=== PATIENT | male | born 1985 | race Hispanic/Latino ===

== ENCOUNTER 2016-12-21 18:54 | Emergency (ER) | payer BC ==
[~2016-12-21] VITALS: Ht 180.3 cm; Wt 100.4 kg
[2016-12-21 21:08] VITALS: BP 131/73
== END 2016-12-21 21:08 | disposition home or self-care (01) | DRG 605 ==
LOC: ED 18:54
PROC: 0HQGXZZ Repair Left Hand Skin, External Approach (ICD-10-PCS; principal; 2016-12-21)
DX: S61.412A Laceration without foreign body of left hand, initial encounter (principal); W26.0XXA Contact with knife, initial encounter; Y93.G9 Activity, other involving cooking and grilling; Y92.000 Kitchen of unspecified non-institutional (private) residence as the place of occurrence of the external cause

== ENCOUNTER 2020-01-28 19:41 | Emergency (ER) | payer SELFPAY ==
[~2020-01-28] VITALS: Ht 180.3 cm; Wt 100.0 kg
[2020-01-28] MEDS ORDERED: KEFLEX500 MG PO (21:34)
[2020-01-28 21:41] VITALS: BP 138/70
== END 2020-01-28 21:50 | disposition home or self-care (01) | DRG 605 ==
LOC: ED 19:41
PROC: 0HQCXZZ Repair Left Upper Arm Skin, External Approach (ICD-10-PCS; principal; 2020-01-28)
DX: S41.112A Laceration without foreign body of left upper arm, initial encounter (principal); S20.312A Abrasion of left front wall of thorax, initial encounter; W20.8XXA Other cause of strike by thrown, projected or falling object, initial encounter; Y93.89 Activity, other specified; Y92.009 Unspecified place in unspecified non-institutional (private) residence as the place of occurrence of the external cause

== ENCOUNTER 2020-06-17 17:41 | Emergency (ER) | payer OTHER ==
[~2020-06-17] VITALS: Ht 180.3 cm; Wt 107.0 kg
[~2020-06-17 17:41] MED LIST: KEFLEX500 MG PO
[2020-06-17 19:42] LABS: HEMATOCRIT 42.5 % (39.0-50.0); HEMOGLOBIN 14.3 g/dl (14.0-18.0); IMMATURE GRANULOCYTES 0.5 % (0.0-5.0); MEAN CELL VOLUME 90.6 fL CALC (80.0-100.0); MEAN CORPUSCULAR HGB 30.5 pG CALC (26.0-32.0); MEAN CORPUSCULAR HGB CONC 33.6 g/dL CAL (32.0-36.0); NEUT# 12.11 thou/uL (1.82-7.42); RED BLOOD COUNT 4.69 mill/uL (4.70-6.10); RED CELL DISTRI WIDTH 13.3 % (11.5-15.5)
[2020-06-17 19:55] LABS: ANION GAP 14 (6-22 (CALC)); BUN 11 mg/dL (9-20); BUN/CREATININE RATIO 14 (12-20 (CALC)); CARBON DIOXIDE 26 mmol/l (22-30); CHLORIDE 99 mmol/l (95-108); CREATININE 0.8 mg/dL (0.7-1.3); GFR > 60 ML/MIN (>=60 (CALC)); GFR FOR AFR.AMER. > 60 ML/MIN (>=60 (CALC)); POTASSIUM 4.3 mmol/l (3.5-5.1); SODIUM 135 mmol/l (137-146)
[2020-06-17] MEDS ORDERED: PERCOCET 5/325M1 TAB PO (20:57)
[2020-06-17] MEDS ORDERED: BACTRIM DS1 TAB PO (20:57)
[2020-06-17] MEDS ORDERED: KEFLEX500 M1 PO (20:57)
[2020-06-17 22:22] VITALS: BP 132/72
== END 2020-06-17 22:22 | disposition home or self-care (01) | DRG 603 ==
LOC: ED 17:41
PROVIDERS: Emergency Medicine
DX: L03.116 Cellulitis of left lower limb (principal); S81.812A Laceration without foreign body, left lower leg, initial encounter; W22.09XA Striking against other stationary object, initial encounter; Y92.009 Unspecified place in unspecified non-institutional (private) residence as the place of occurrence of the external cause

== ENCOUNTER 2020-06-19 16:25 | Emergency (ER) | payer OTHER ==
[~2020-06-19] VITALS: Ht 180.3 cm; Wt 108.2 kg
[~2020-06-19 16:25] MED LIST changes: +BACTRIM DS1 TAB PO; +KEFLEX500 M1 PO; +PERCOCET 5/325M1 TAB PO
[2020-06-19 17:53] LABS: HEMATOCRIT 41.2 % (39.0-50.0); HEMOGLOBIN 13.5 g/dl (14.0-18.0); IMMATURE GRANULOCYTES 0.3 % (0.0-5.0); MEAN CELL VOLUME 91.8 fL CALC (80.0-100.0); MEAN CORPUSCULAR HGB 30.1 pG CALC (26.0-32.0); MEAN CORPUSCULAR HGB CONC 32.8 g/dL CAL (32.0-36.0); NEUT# 7.11 thou/uL (1.82-7.42); RED BLOOD COUNT 4.49 mill/uL (4.70-6.10); RED CELL DISTRI WIDTH 13.2 % (11.5-15.5)
[2020-06-19 18:14] LABS: ALKALINE PHOSPHATASE 157 u/l (38-126); ANION GAP 13 (6-22 (CALC)); BILIRUBIN, TOTAL 1.2 mg/dL (0.0-1.4); BUN 7 mg/dL (9-20); BUN/CREATININE RATIO 10 (12-20 (CALC)); CARBON DIOXIDE 28 mmol/l (22-30); CHLORIDE 100 mmol/l (95-108); CREATININE 0.7 mg/dL (0.7-1.3); GFR > 60 ML/MIN (>=60 (CALC)); GFR FOR AFR.AMER. > 60 ML/MIN (>=60 (CALC)); SGOT/AST 58 u/l (17-59); SODIUM 137 mmol/l (137-146); TOTAL PROTEIN 7.4 g/dL (6.3-8.2)
[2020-06-19 22:20] VITALS: BP 117/77
== END 2020-06-19 22:20 | disposition home or self-care (01) | DRG 605 ==
LOC: ED 16:25
DX: S80.812A Abrasion, left lower leg, initial encounter (principal); L03.116 Cellulitis of left lower limb; X58.XXXA Exposure to other specified factors, initial encounter

== ENCOUNTER 2020-06-20 17:15 | Observation (INO) | payer OTHER ==
[~2020-06-20] VITALS: Ht 180.3 cm; Wt 102.0 kg
--- NOTE | 2020-06-20 17:39 | NUR ---
PT TO ROOM PER W/C
--- NOTE | 2020-06-20 17:45 | NUR ---
MLP IN TO DO I&D OR LEFT LOWER LEG ABSCESS. PT TOLERATED WELL. CALL LIGHT WITHIN REACH.
--- NOTE | 2020-06-20 18:08 | NUR ---
PT MOVED TO ER BED 6 FOR HIGHER CARE. IV INITIATED, LABS DRAWN, IV ANTIBIOTICS STARTED AND IM ROCEPHIN GIVEN PER MLP ORDERS. PT TOLERATED WELL. CALL LIGHT WITHIN REACH. REPORT GIVEN TO POP ULLOA AND CARE RELINQUISHED.
--- NOTE | 2020-06-20 18:09 | NUR ---
RECEIVED REPORT FROM SHYANNE WISE. PATIENT MOVED TO ROOM 6 TO BE MORE COMFORTABLE DURING VANCO INFUSION. WILL MONITOR. BED LOCKED AND IN LOWEST POSITION, SIDE RAILS UP X2 FOR SAFETY. CALL MATTHEW IN REACH. S.O. AT BEDSIDE.
[2020-06-20 18:21] LABS: HEMATOCRIT 40.8 % (39.0-50.0); HEMOGLOBIN 13.5 g/dl (14.0-18.0); IMMATURE GRANULOCYTES 0.2 % (0.0-5.0); MEAN CELL VOLUME 91.5 fL CALC (80.0-100.0); MEAN CORPUSCULAR HGB 30.3 pG CALC (26.0-32.0); MEAN CORPUSCULAR HGB CONC 33.1 g/dL CAL (32.0-36.0); NEUT# 4.93 thou/uL (1.82-7.42); RED BLOOD COUNT 4.46 mill/uL (4.70-6.10); RED CELL DISTRI WIDTH 13.2 % (11.5-15.5)
--- NOTE | 2020-06-20 18:23 | NUR ---
PATIENT RESTNIG IN BED, WATCHING TV. VANCO INFUSING TO RAC, NO S/S OF INFILTRATION OR ADVERSE REACTION AT THIS TIME. PATIENT TOLERATING WELL. WCTM.
[2020-06-20 18:45] LABS: ALBUMIN 4.1 g/dL (3.2-5.0); ALKALINE PHOSPHATASE 171 u/l (38-126); ANION GAP 14 (6-22 (CALC)); BILIRUBIN, TOTAL 0.8 mg/dL (0.0-1.4); BUN 6 mg/dL (9-20); BUN/CREATININE RATIO 9 (12-20 (CALC)); CARBON DIOXIDE 24 mmol/l (22-30); CHLORIDE 103 mmol/l (95-108); CREATININE 0.7 mg/dL (0.7-1.3); GFR > 60 ML/MIN (>=60 (CALC)); GFR FOR AFR.AMER. > 60 ML/MIN (>=60 (CALC)); SGOT/AST 71 u/l (17-59); SODIUM 137 mmol/l (137-146); TOTAL PROTEIN 7.5 g/dL (6.3-8.2)
--- NOTE | 2020-06-20 19:00 | NUR ---
IN ROOM INTRODUCED SELF TO PT. NO C/O AT THIS TIME. IV ABT. INFUSING WELL, NO REDNESS OR EDEMA NOTED. PT. MADE AWARE OF ADMISSION, VERBALIZED UNDERSTANDING.
--- NOTE | 2020-06-20 19:56 | NUR ---
Admission Note Report Given to: MERYL ULLOA Transported by: Wheelchair X Stretcher Transported with: X Nurse Transporter X Patent IV O2 Event Marketing Specialist Location: ICU X [facility]
--- NOTE | 2020-06-20 19:57 | NUR ---
PT. TAKEN TO MS FLOOR VIA STRETCHER, NO C/O. IV ABT. INFUSING WELL, NO REDNESS OR EDEMA NOTED.
[2020-06-20 20:08] VITALS: BP 162/96
--- NOTE | 2020-06-20 20:31 | NUR ---
1999-patient arrived to unit via stretcher, on room air, accompanied by KAY Russell RN. Ambulated to bed with steady gait, denies pain to left leg, has an abrasion to left leg, states that ER doctor opened and drained the wound, dressing in in place is CDI, on left lower extremety, sargent area. Arrived with vancomycin infusing, 20G RCA patent, no telemetry, states live at home with family, and work in the [employer], driving a machine. Patient states fell out of the machine at work and hit on the left lower extremity, sargent area. 2029-Vancomycin infusion completed, hep lock iv. NO pain reported, assessment completed at this time, educated about plan of care, safety measures, hourly rounding, and call pina system, patient voices understanding, call pina a reach. Will follow up with hourly rounding.
--- NOTE | 2020-06-20 22:00 | NUR ---
patient is resting in bed, cefepime infusing at this time, will follow up with frequently roundings. iv site is patent.
--- NOTE | 2020-06-21 00:35 | NUR ---
patient is resting in bed with eyes closed, arouses easily to stimuli, no pain or needs reported at this time; refused scheduled medication, call pina is at reach, will follow up closely.
--- NOTE | 2020-06-21 03:50 | NUR ---
PATIENT IS RESTING IN BED, NO CHANGES NOTED FROM PREVIOUS ASSESSMENT, DENIES PAIN, OR NEED FOR PAIN MEDICATION, WILL FOLLOW UP CLOSELY, CALL MATTHEW AT REACH.
[2020-06-21 04:00] VITALS: BP 100/56
[2020-06-21 05:31] LABS: HEMATOCRIT 38.9 % (39.0-50.0); HEMOGLOBIN 12.9 g/dl (14.0-18.0); IMMATURE GRANULOCYTES 0.5 % (0.0-5.0); MEAN CELL VOLUME 91.5 fL CALC (80.0-100.0); MEAN CORPUSCULAR HGB 30.4 pG CALC (26.0-32.0); MEAN CORPUSCULAR HGB CONC 33.2 g/dL CAL (32.0-36.0); NEUT# 5.96 thou/uL (1.82-7.42); RED BLOOD COUNT 4.25 mill/uL (4.70-6.10)
[2020-06-21 05:51] LABS: ANION GAP 14 (6-22 (CALC)); BUN 5 mg/dL (9-20); BUN/CREATININE RATIO 9 (12-20 (CALC)); CARBON DIOXIDE 24 mmol/l (22-30); CHLORIDE 103 mmol/l (95-108); CREATININE 0.6 mg/dL (0.7-1.3); GFR > 60 ML/MIN (>=60 (CALC)); GFR FOR AFR.AMER. > 60 ML/MIN (>=60 (CALC)); POTASSIUM 4.5 mmol/l (3.5-5.1); SODIUM 137 mmol/l (137-146)
[2020-06-21 07:38] VITALS: BP 119/66
--- NOTE | 2020-06-21 07:40 | NUR ---
PT LAYING IN BED A&O X3. NO DISTRESS NOTED. PT DENIES ANY PAIN, 0/10. #20 LAC INFUSING WITH SCHEDULED VANCOMYCIN AT 125 ML/HR. IV APPEARS HEALTHY AN D PATENT. LLE ELEVATED ON PILLOW. DRESSING TO LT [place] CDI. EXPLAINED TO PT THAT DRESSING WAS GOING TO BE REMOVED AND PHOTO OBTAINED, PT AGREEABLE PT REPORTS HAVING A SMALL "ABRAISON" THAT OCCURED WHEN HE WAS WORKING. REPORTS IMPROVEMENT WITH SWELLING. LLE WARM TO TOUCH. EDEMA NOTED TO EXTREMITY AND ANKLE. NO OTHER NEEDS AT THIS TIME. ASSESSMENT COMPLETED. DISCUSSED POC. CALL LIGHT LEFT WITHIN REACH.
--- NOTE | 2020-06-21 09:28 | NUR ---
DR ABBOTT AND Keshia BERNAL APRN AT BEDSIDE
--- NOTE | 2020-06-21 09:54 | NUR ---
WOUND PHOTO OBTAINED AND PLACED IN CHART.
--- NOTE | 2020-06-21 09:58 | NUR ---
DR CONTE AT BEDSIDE
--- NOTE | 2020-06-21 11:53 | NUR ---
PT SITTING IN BED EATING LUNCH. DENIES ANY PAIN AT THIS TIME. CALL LIGHT LEFT WITHIN REACH.
[2020-06-21 15:00] VITALS: BP 125/69
--- NOTE | 2020-06-21 15:02 | NUR ---
S: MAURILIO FITZPATRICK is a 34 M who presents with cellulitis of the the lower left extremity. He denies any past medical history. All medications in patient's chart were reviewed. O: VS: BP 119/66 mmHg, P 77 beats per minute, RR 18 breathes per minute, T 97.7 F W 102.001 kg, HT 70 in, Scr= 0.6 mg/dL, CrCl= 250 mL/min A: Wound culture is pending. P: Patient is on vancomycin 1250 mg IV Q8H and cefepime 1 g IV Q12H. Vancomycin ordered for pharmacy to dose. Start Vancomycin 1250 mg IV Q8H. Vancomycin trough is drawn before the 4th dose on 06/21/20 @ 2130. Vancomycin goal trough is between 10-15 mcg/ml. Pharmacy will follow and or advise on antibiotics use as needed.
[2020-06-21 19:00] VITALS: BP 115/66
--- NOTE | 2020-06-21 20:00 | NUR ---
RECEIVED REPORT FOKoffi NURSE SOFIA, PATIENT ALERT ORIENTED MOSTLY [place] ISLANDER, DENIES PAIN AT THIS TIME, WITH SALINE LOCK ON RAC PATENT FLUSHES WELL,BREATHING EVEN UNLABORED LBM 06/21,LEFT LEG TRACE OF SARAH WARM TO TOUCH, STRONG PEDAL PULSE DRESSING ON LEFT LEG CDI DONE BY WOUNDCARE DOCTOR,CALL LIGHT AT REACH.
--- NOTE | 2020-06-22 | NUR ---
PATIENT RESTING IN BED, AWAKE, ABX FLUSHED, DENIES PAIN CALL LIGHT AT REACH.
--- NOTE | 2020-06-22 03:46 | NUR ---
PATIENT RESTING IN BED WITH EYES CLOSED, BREATHING EVEN UNLABORED DENIES PAIN,CALL LIGHT AT REACH.
[2020-06-22 04:00] VITALS: BP 106/54
[2020-06-22 05:45] LABS: HEMOGLOBIN 14.5 g/dl (14.0-18.0); IMMATURE GRANULOCYTES 0.5 % (0.0-5.0); MEAN CELL VOLUME 93.6 fL CALC (80.0-100.0); MEAN CORPUSCULAR HGB 29.8 pG CALC (26.0-32.0); MEAN CORPUSCULAR HGB CONC 31.9 g/dL CAL (32.0-36.0); NEUT# 2.82 thou/uL (1.82-7.42); RED BLOOD COUNT 4.86 mill/uL (4.70-6.10); RED CELL DISTRI WIDTH 13.2 % (11.5-15.5)
[2020-06-22 06:04] LABS: HEMATOCRIT 45.5 % (39.0-50.0)
[2020-06-22 06:07] LABS: ALKALINE PHOSPHATASE 165 u/l (38-126); ANION GAP 15 (6-22 (CALC)); BILIRUBIN, TOTAL 0.7 mg/dL (0.0-1.4); BUN 11 mg/dL (9-20); BUN/CREATININE RATIO 15 (12-20 (CALC)); CARBON DIOXIDE 23 mmol/l (22-30); CHLORIDE 106 mmol/l (95-108); CREATININE 0.7 mg/dL (0.7-1.3); GFR > 60 ML/MIN (>=60 (CALC)); GFR FOR AFR.AMER. > 60 ML/MIN (>=60 (CALC)); POTASSIUM 4.7 mmol/l (3.5-5.1); SGOT/AST 56 u/l (17-59); SODIUM 140 mmol/l (137-146); TOTAL PROTEIN 7.4 g/dL (6.3-8.2)
--- NOTE | 2020-06-22 07:00 | NUR ---
RECIEVED REPORT FROM ARTEMIO SCHWARZ
[2020-06-22 07:54] VITALS: BP 111/63
--- NOTE | 2020-06-22 07:54 | NUR ---
PT RESTING IN SEMI FOWLERS POSITION. PT IS A/O X3, MOSTLY [place] SPEAKING BUT UNDERSTANDING ICELANDIC WELL. ASSESSMENT AND VITALS COMPLETED. BP 111/63, HR 69, O2 97% ON ROOM AIR. RESPIRATIONS ARE EVEN AND UNLABORED WITH NO DISTRESS NOTED. HEART RHYTHM NORMAL. BOWEL SOUNDS ARE ACTIVE. RADIAL AND PEDAL PULSES ARE STRONG. #20G IN RAC FLUSHED, SITE APPEARS HEALTHY AND PATENT. DRESSING TO LEFT CALF REMAINS CDI. SURROUNDING SKIN IS REDDENED AND WARM TO TOUCH. PT DENIES OF ANY PAINS OR DISCOMFORTS. ALL SAFETY PRECAUTIONS ARE IN PLACE WITH CALL LIGHT IN REACH. INSTRUCTED PT TO CALL FOR ASSISTANCE. WILL CONTINUE TO MONITOR.
--- NOTE | 2020-06-22 09:25 | NUR ---
DR BARROSO AND KAYLEE SINGLETON AT BEDSIDE
--- NOTE | 2020-06-22 10:13 | NUR ---
WOUND CARE AT BEDSIDE. DRESSING CHANGED, REMAINS CDI. PT DENIES OF ANY PAIN. WILL CONTINUE.
--- NOTE | 2020-06-22 12:50 | NUR ---
PT RESTING IN SEMI FOWLERS POSITION. RESPIRATIONS ARE EVEN AND UNLABORED ON ROOM AIR. DRESSING TO LEFT LEG REMAINS CDI, ELEVATED WITH PILLOWS X2. PT DENIES OF ANY PAINS OR DISCOMFORTS. ALL SAFETY PRECAUTIONS ARE IN PLACE WITH CALL LIGHT IN REACH. WILL CONTINUE TO MONITOR.
[2020-06-22] MEDS ORDERED: BACTRIM DS1 TAB PO (13:44)
--- NOTE | 2020-06-22 14:24 | NUR ---
PUNEET THROUGH OBTAINED BY NAPHTHALENE OPERATOR HELPER
[2020-06-22 15:00] VITALS: BP 126/77
--- NOTE | 2020-06-22 15:40 | NUR ---
PT EDUCATED ON DISCHARGE INSTRUCTIONS AND NEW MEDICATIONS. PT INFORMED ON NEED TO FINISH PREVIOUSLY PRESCRIBED KEFLEX AND BACTRIUM AND THE TAKE ADDITIONAL 5 DAYS OF BACTRUIM.FOLLOW UP WITH WOUND CARE AND PCP, CARD FOR DR ABBOTT PROVIDED IF PT WAS INTRESTED. PT VERBLAIZED UNDERSTANDING. TRANSLATION PROVIDED BY STAFF. PT VERBLAIZED UNDERSTANDING. WAITING FOR COMPLETION OF IV ANTIBIOTICS BEFORE DC. ALL SAFETY PRECAUTIONS ARE IN PLACE. WILL CONTINUE TO MONITOR.
--- NOTE | 2020-06-22 17:42 | NUR ---
IV ANTIBIOTIC COMPLETED. #20G IN RAC REMOVED WITH CATAHTER STILL INTACT. PT TOELRATED WELL. DRESSING TO LEFT LEG REMAINS CDI. WAITING FOR TRANSPORTATION AT THIS TIME. WILL CONTINUE TO MONITOR.
--- NOTE | 2020-06-22 18:00 | NUR ---
Discharge instructions given. Patient verbalizes understanding of same. Discharged in stable condition via Wheelchair to Home with family. All belongings sent with pt. PT DICHARGED HOME WITH ALL DISCHARGE INSTRUCTIONS AND BELONINGS IN STABLE CONDITION VIA WHEELCHAIR ACCOMPAINED BY VALENTÍN [employer]
== END 2020-06-22 18:00 | disposition home or self-care (01) | DRG 603 ==
LOC: ED 17:15 → ED-I 18:17 → ED 18:24 → MS2 18:25
PROVIDERS: Emergency Medicine; Nurse Practitioner; ADMIT Internal Medicine; ATTEND Internal Medicine
PROC: 0H9LXZZ Drainage of Left Lower Leg Skin, External Approach (ICD-10-PCS; principal; 2020-06-21)
DX: L02.416 Cutaneous abscess of left lower limb (principal); L03.116 Cellulitis of left lower limb; S80.812A Abrasion, left lower leg, initial encounter; B95.4 Other streptococcus as the cause of diseases classified elsewhere; W19.XXXA Unspecified fall, initial encounter; Y92.73 Farm field as the place of occurrence of the external cause; Y99.0 Civilian activity done for income or pay; Z20.822 Contact with and (suspected) exposure to COVID-19
CPT/HCPCS: G0378; J0692; J3370

== ENCOUNTER 2022-02-06 20:19 | Emergency (ER) | payer SELFPAY ==
[~2022-02-06] VITALS: Ht 180.3 cm; Wt 117.0 kg
[2022-02-06] MEDS ORDERED: BACTRIM DS1 TAB PO (20:54)
[2022-02-06 21:31] VITALS: BP 115/58
== END 2022-02-06 21:39 | disposition home or self-care (01) | DRG 603 ==
LOC: ED 20:19
DX: L03.116 Cellulitis of left lower limb (principal)